=== PATIENT | female | born 1985 | race Caucasian/White ===

== ENCOUNTER 2017-01-01 12:37 | Emergency (ER) | payer OTHER ==
[2017-01-01 13:12] VITALS: BP 108/74
--- NOTE | 2017-01-01 14:11 | UC ---
Ewa Mckoy Alok, scribed for Angus Wolff MD on 01/01/17 at 1306 . FLU HPI - HPI Summary HPI Summary: 31F presents to the [facility] with SALCIDO, clear rhinorrhea, difficulty sleeping, fatigue , and generalized myalgia since 4 days ago. Pt states her SALCIDO and rhinorrhea have been improving since then, though her myalgia seems to be getting worse. Pt also notes sore throat a few days ago. Pt also notes a red bump on her left chest one month ago smaller than a dime. Pt denies fever, N/V/D, or rashes. Pt denies SOB. Pt denies tobacco/ETOH. Pt is allergic to Sulfa-antibiotics and Peptobismo. She denies seeing any ticks on her body, and denies removing any ticks. 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 She is requesting lyme testing. - History of Current Complaint Chief Complaint: UCGeneralIllness Stated Complaint: BODY ACHES, LOW ENERGY Time Seen by Provider: 01/01/17 12:57 Hx Obtained From: Patient Hx Last Menstrual Period: Mirena IUD ?: No Onset/Duration: Gradual Onset, Lasting Days, Still Present Severity Currently: Moderate Severity Initially: Moderate Pain Intensity: 1 Pain Scale Used: 0-10 Numeric Associated Signs & Symptoms: Positive: Myalgia, Sore Throat, Nasal Congestion, Headache. Negative: Fever, Vomiting, Diarrhea - Allergy/Home Medications Allergies/Adverse Reactions: Allergies Allergy/AdvReac Type Severity Reaction Status Date / Time Bismuth Subsalicylate Allergy Unknown Verified 01/01/17 12:49 Reaction Details Sulfa Antibiotics Allergy Pruritis Verified 01/01/17 12:49 Home Medications: Home Medications Acetaminophen [Acetaminophen Extra Stren] 1,000 mg PO Q6H PRN 01/01/17 [History Confirmed 01/01/17] Levonorgestrel (Iud) [Mirena IUD] 20 mcg IU ONCE 01/01/17 [History Confirmed ] Vitamin TAB* 1 tab PO DAILY 01/01/17 [History Confirmed 01/01/17] PMH/Surg Hx/FS Hx/Imm Hx Endocrine History Of: Denies: Diabetes Cardiovascular History Of: Denies: Hypertension - Surgical History Surgical History: Yes Surgery Procedure, Year, and Place: [place] Teeth Extractions - Family History Known Family History: Positive: Other - Yes - glaucoma - Social History Occupation: Employed Full-time Alcohol Use: Rare Substance Use Type: Excessive Caffeine Smoking Status (MU): Never Smoked Tobacco - Immunization History Most Recent Influenza Vaccination: 04/06/16 Most Recent Tetanus Shot: 04/06/16 Most Recent Pneumonia Vaccination: n/a Review of Systems Constitutional: Fatigue ENT: Sore Throat, Nasal Discharge Respiratory: Negative Gastrointestinal: Negative Musculoskeletal: Myalgia Neurological: Headache All Other Systems Reviewed And Are Negative: Yes Physical Exam Triage Information Reviewed: Yes Appearance: Well-Appearing, No Pain Distress, Well-Nourished Vital Signs: Initial Vital Signs Temp 98.4 F 01/01/17 12:47 Pulse 72 01/01/17 12:47 Resp 16 01/01/17 12:47 BP 108/74 01/01/17 12:47 Pulse Ox 99 01/01/17 12:47 Flu Course/Dx - Course Course Of Treatment: 31 yr old with clear runny nose, sore throat and cough with myalgias this week, getting better. Influenza negative. She has appointment January [address] Kartik Shen office. Lyme test sent per her request. Await results and she will follow up with Dr Shen office. - Differential Dx/Diagnosis Provider Diagnoses: upper respiratory infection Discharge - Discharge Plan Condition: Good Disposition: HOME Patient Education Materials: Upper Respiratory Infection (ED), Lyme Disease (ED ) Referrals: No Primary Care Phys,NOPCP [Primary Care Provider] - Cornelio Kinney MD [Medical Doctor] - 01/20/17 The documentation as recorded by the Ewa ansari Alok accurately reflects the service I personally performed and the decisions made by me, Angus Wolff MD.
== END 2017-01-01 13:49 | disposition home or self-care (01) ==
LOC: UCEAST 12:37
DX: J06.9 Acute upper respiratory infection, unspecified (principal); Z88.2 Allergy status to sulfonamides
CPT/HCPCS: 86618; 87502; 99201; G0463

== ENCOUNTER 2017-12-22 19:16 | Emergency (ER) | payer OTHER ==
[2017-12-22 19:30] VITALS: BP 123/71
--- NOTE | 2017-12-22 20:36 | RAD ---
INDICATION: Short of breath COMPARISON: None TECHNIQUE: PA and lateral dual-energy views were obtained. FINDINGS: Bones/Soft Tissues: There are no acute bony findings. There is a mild pectus excavatum deformity Cardiomediastinal: The cardiomediastinal silhouette is normal. Lungs: There are no infiltrates. Pleura: There are no pleural effusions. Other: None IMPRESSION: NO ACTIVE DISEASE.
[2017-12-22] MEDS ORDERED: Albuterol HFA INHALER* 8 gm MDI INH ONE (20:47)
--- NOTE | 2017-12-22 21:25 | UC ---
Shortness of Breath HPI - HPI Summary HPI Summary: Patient is a 32-year-old female presenting to the with chief complaint of not being able to take a full deep breath of air. She also endorses some lightheadedness when she is attempting at this. She states today while walking across her living room floor she became short of breath and dizzy so came to the . History of asthma many years ago, but has not needed an inhaler. Denies any chest pain. Denies any chest pain with inspiration. Vital signs are stable on arrival. She denies any fevers, sweats, chills. Denies any recent injury, trauma or URI. She has never had these symptoms before. Symptoms began approximately 3-4 days ago. Not worse or better with positioning or rest. - History of Current Complaint Chief Complaint: UCRespiratory Stated Complaint: DIFFICULTY BREATHING,LIGHT-HEADED Time Seen by Provider: 12/22/17 19:33 Hx Obtained From: Patient Hx Last Menstrual Period: unknown ?: No Onset/Duration: Sudden Onset Timing: Constant Current Severity: Mild Dyspnea At: Rest - Risk Factors Pulmonary Embolism: Negative Cardiac: Negative Pseudomonas: Negative Tuberculosis: Negative - Allergy/Home Medications Allergies/Adverse Reactions: Allergies Allergy/AdvReac Type Severity Reaction Status Date / Time bismuth subsalicylate Allergy red spots Verified 12/22/17 19:33 [From Pepto-Bismol] Sulfa (Sulfonamide Allergy Rash Verified 12/22/17 19:33 Antibiotics) Home Medications: Home Medications Multivit,Calc,Mins/Folic Acid [One-A-Day Proactive 65 Plus Tb] 1 tab PO DAILY [History Confirmed 12/22/17] PMH/Surg Hx/FS Hx/Imm Hx Previously Healthy: Yes - Surgical History Surgical History: Yes Surgery Procedure, Year, and Place: [place] Teeth Extractions - Family History Known Family History: Positive: Other - Yes - glaucoma - Social History Occupation: Employed Full-time Lives: With Family Alcohol Use: Rare Substance Use Type: Excessive Caffeine Smoking Status (MU): Never Smoked Tobacco - Immunization History Most Recent Influenza Vaccination: 04/06/16 Most Recent Tetanus Shot: 04/06/16 Most Recent Pneumonia Vaccination: n/a Review of Systems Constitutional: Fever Skin: Negative ENT: Negative Respiratory: Shortness Of Breath Gastrointestinal: Negative Motor: Negative Neurovascular: Negative Musculoskeletal: Negative Neurological: Other - light headedness Psychological: Negative Is Patient Immunocompromised?: No All Other Systems Reviewed And Are Negative: Yes Physical Exam Triage Information Reviewed: Yes Appearance: Well-Appearing, Well-Nourished Vital Signs: Initial Vital Signs Temp 97.8 F 12/22/17 19:24 Pulse 85 12/22/17 19:24 Resp 16 12/22/17 19:24 BP 123/71 12/22/17 19:24 Pulse Ox 98 12/22/17 19:24 Vital Signs Reviewed: Yes Eye Exam: Normal Neck exam: Normal Neck: Positive: Supple Respiratory: Positive: Chest non-tender Cardiovascular Exam: Normal Musculoskeletal Exam: Normal Neurological: Positive: Alert Psychological Exam: Normal Psychological: Positive: Normal Response To Family Skin Exam: Normal Shortness of Breath Dx - Course Course Of Treatment: During the course of treatment, the patient is evaluated for shortness of breath and dizziness. Immediately on arrival, EKG is performed which shows normal sinus rhythm. Vital signs are stable and she is not tachycardic. Chest x-ray obtained which shows no acute findings. There is no pain on palpation of the chest. No worsening pain with inspiration. No recent travel. No recent URI. I've advised she at this time he is an albuterol inhaler and ibuprofen for any inflammatory process. She is okay with this plan and will follow-up with her PCP for any worsening or changing symptoms. - Differential Dx/Diagnosis Provider Diagnoses: Shortness of breath Discharge - Sign-Out/Discharge Documenting (check all that apply): Discharge/Admit/Transfer - Discharge Plan Condition: Stable Disposition: HOME Patient Education Materials: Dyspnea (ED) Referrals: Cornelio Kinney MD [Primary Care Provider] - Additional Instructions: Ibuprofen 600mg three times daily Albuterol inhaler for any feelings of shortness of breath For any worsening or changing symptoms, return to the - Billing Disposition and Condition Condition: STABLE Disposition: HOME
== END 2017-12-22 20:50 | disposition home or self-care (01) ==
LOC: UCEAST 19:16
DX: R06.02 Shortness of breath (principal); R42 Dizziness and giddiness; Z88.2 Allergy status to sulfonamides
CPT/HCPCS: 71046; 93005; 99212; A9270-GY; G0463

== ENCOUNTER 2018-11-28 08:25 | Emergency (ER) | payer OTHER ==
[2018-11-28 08:55] VITALS: BP 108/67
--- NOTE | 2018-11-28 09:25 | UC ---
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 Ear pain dull, achy, keeping her up at night. No drainage noted. no fever, chills, no sinus drainage, feeling ill/ cold symptoms. Occurred one other time. hearing intact. - History of Current Complaint Chief Complaint: UCEar Stated Complaint: EAR PAIN Time Seen by Provider: 11/28/18 09:00 Hx Obtained From: Patient Hx Last Menstrual Period: unknown ?: No Onset/Duration: Sudden Onset, Lasting Days - 2 days Severity Initially: Mild Severity Currently: Moderate Pain Intensity: 5 Pain Scale Used: 0-10 Numeric Alleviating Factors: Nothing Associated Signs/Symptoms: Positive: Swelling @ - ear canal L side. Negative: Discharge, Hearing Loss, Foreign Body Sensation, Trauma to Ear - Allergies/Home Medications Allergies/Adverse Reactions: Allergies Allergy/AdvReac Type Severity Reaction Status Date / Time bismuth subsalicylate Allergy red spots Verified 11/28/18 08:56 [From Pepto-Bismol] Sulfa (Sulfonamide Allergy Rash Verified 11/28/18 08:56 Antibiotics) PMH/Surg Hx/FS Hx/Imm Hx Previously Healthy: Yes - Surgical History Surgical History: Yes Surgery Procedure, Year, and Place: [place] Teeth Extractions - Family History Known Family History: Positive: Other - Yes - glaucoma - Social History Alcohol Use: Rare Substance Use Type: Excessive Caffeine Smoking Status (MU): Never Smoked Tobacco - Immunization History Most Recent Influenza Vaccination: 04/06/16 Most Recent Tetanus Shot: 04/06/16 Most Recent Pneumonia Vaccination: n/a Review of Systems All Other Systems Reviewed And Are Negative: Yes ENT: Positive: Ear Ache Psychological: Positive: Negative Is Patient Immunocompromised?: No Physical Exam Triage Information Reviewed: Yes Appearance: Well-Appearing, No Pain Distress, Well-Nourished Vital Signs: Initial Vital Signs Temp 97.8 F 11/28/18 08:50 Pulse 71 11/28/18 08:50 Resp 18 11/28/18 08:50 BP 108/67 11/28/18 08:50 Pulse Ox 99 11/28/18 08:50 Vital Signs Reviewed: Yes Eyes: Positive: Conjunctiva Clear ENT: Positive: Other - L ear canal minimal erythema until near TM, then red around TM with purulent material seen frm 12-3 position, + erythema from 12-6 position, TM intact, no bulging, no fluid posterior to TM. + tenderness to exam externally. + mild periauricular tenderness L side. No symptoms. Negative: Nasal congestion, Nasal drainage, TM bulging, TM dull, TM red Neck: Positive: Supple, Nontender Musculoskeletal Exam: Normal Neurological Exam: Normal Psychological Exam: Normal Skin Exam: Normal Ear Complaint Course/Dx - Course Course Of Treatment: h/o otitis extena, treated with topical drops, return if there is no improvement within 2-3 days - Differential Dx/Diagnosis Differential Diagnosis/HQI/PQRI: Cerumen Impaction, URI Provider Diagnosis: Otitis externa Discharge - Sign-Out/Discharge Documenting (check all that apply): Patient Departure All imaging exams completed and their final reports reviewed: No Studies - Discharge Plan Condition: Good Disposition: HOME Prescriptions: Neomyc/Polym/HC 1% OTIC SUSP* [Cortisporin Otic Susp 1%*] 4 drop RIGHT EAR QID # 1 btl Patient Education Materials: Otitis Externa (ED) Referrals: Cornelio Kinney MD [Primary Care Provider] - Additional Instructions: - Four drops into right ear canal four times daily x 5-7 days, may stop when symptoms completed resolved after 5 days - Follow up within 2-3 days if no improvement of symptoms. - Follow up with dermatology due to history of eczema in ear - Billing Disposition and Condition Condition: GOOD Disposition: Home
== END 2018-11-28 09:35 | disposition home or self-care (01) ==
LOC: UCEAST 08:25
DX: H60.92 Unspecified otitis externa, left ear (principal); Z88.2 Allergy status to sulfonamides; Z88.8 Allergy status to other drugs, medicaments and biological substances
CPT/HCPCS: 99212; G0463

== ENCOUNTER 2018-11-28 21:09 | Emergency (ER) | payer OTHER ==
[2018-11-28 21:38] VITALS: BP 114/76
--- NOTE | 2018-11-28 21:39 | UC ---
Ear Complaint HPI - HPI Summary HPI Summary: 33 yo female presents with right ear pain. She tells me that she was seen here this morning for right ear pain and dx'd with otitis externa and placed on ear drops. She has used two doses of the ear drops. Tonight she was getting her toddler son in the bathtub when they collided head and son impacted pt's right ear causing her significant pain. She is concerned her eardrum may be ruptured and is wondering if she should continue the ear drops. - History of Current Complaint Chief Complaint: UCEar Stated Complaint: EAR ACHE Time Seen by Provider: 11/28/18 21:39 Hx Obtained From: Patient Hx Last Menstrual Period: iud Onset/Duration: Sudden Onset Severity Initially: Moderate Severity Currently: Moderate Pain Intensity: 6 Pain Scale Used: 0-10 Numeric - Allergies/Home Medications Allergies/Adverse Reactions: Allergies Allergy/AdvReac Type Severity Reaction Status Date / Time bismuth subsalicylate Allergy red spots Verified 11/28/18 21:38 [From Pepto-Bismol] Sulfa (Sulfonamide Allergy Rash Verified 11/28/18 21:38 Antibiotics) PMH/Surg Hx/FS Hx/Imm Hx - Additional Past Medical History Additional PMH: None - Surgical History Surgical History: Yes Surgery Procedure, Year, and Place: [place] Teeth Extractions - Family History Known Family History: Positive: Other - Yes - glaucoma - Social History Lives: With Family Alcohol Use: Rare Substance Use Type: Excessive Caffeine Smoking Status (MU): Never Smoked Tobacco - Immunization History Most Recent Influenza Vaccination: 04/06/16 Most Recent Tetanus Shot: 04/06/16 Most Recent Pneumonia Vaccination: n/a Review of Systems All Other Systems Reviewed And Are Negative: Yes Constitutional: Positive: Negative Skin: Positive: Negative ENT: Positive: Ear Ache Respiratory: Positive: Negative Cardiovascular: Positive: Negative Neurological: Positive: Negative Psychological: Positive: Negative Physical Exam - Summary Physical Exam Summary: GENERAL: NAD. WDWN. No pain distress. SKIN: No rashes, sores, lesions, or open wounds. HEENT: Head: AT/NC Eyes: EOM intact. Conjunctiva clear without inflammation or discharge. Ears: Hearing grossly normal. TMs intact, no bulging, erythema, or edema. RIGHT ear canal with mild edema and scant white discharge. TTP with manipulation. Nose: Nasal mucosa pink and moist. NTTP maxillary and frontal sinus. Throat: Posterior oropharynx without exudates, erythema, or tonsillar enlargement. Uvula midline. NECK: Supple. Nontender. No lymphadenopathy. CHEST: CTAB. No r/r/w. No accessory muscle use. Breathing comfortably and in no distress. CV: RRR. Without m/r/g. Pulses intact. Cap refill <2seconds NEURO: Alert. PSYCH: Age appropriate behavior. Triage Information Reviewed: Yes Vital Signs: Initial Vital Signs Temp 97.6 F 11/28/18 21:34 Pulse 70 11/28/18 21:34 Resp 16 11/28/18 21:34 BP 114/76 11/28/18 21:34 Pulse Ox 100 11/28/18 21:34 Vital Signs Reviewed: Yes Ear Complaint Course/Dx - Course Course Of Treatment: TM appears intact. Advised pt to continue using anbx ear drop for otitis externa. - Differential Dx/Diagnosis Provider Diagnosis: Otitis externa Discharge - Sign-Out/Discharge Documenting (check all that apply): Patient Departure All imaging exams completed and their final reports reviewed: No Studies - Discharge Plan Condition: Stable Disposition: HOME Referrals: Cornelio Kinney MD [Primary Care Provider] - Additional Instructions: If you develop a fever, shortness of breath, chest pain, new or worsening symptoms - please call your PCP or go to the ED. Your eardrum appears intact on exam today. Continue using your antibiotic ear drops - Billing Disposition and Condition Condition: STABLE Disposition: Home
== END 2018-11-28 21:50 | disposition home or self-care (01) ==
LOC: UCEAST 21:09
DX: H60.91 Unspecified otitis externa, right ear (principal); Z88.2 Allergy status to sulfonamides; Z88.8 Allergy status to other drugs, medicaments and biological substances
CPT/HCPCS: 99211; G0463

== ENCOUNTER 2019-10-07 13:26 | Emergency (ER) | payer OTHER ==
--- OUTSIDE RECORDS SUMMARY | 2019-10-07 13:32 | XMS REPORT | Continuity of Care Document ---
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 Medicine Problems Active Problems Provider Date Contraception care Cornelio Kinney M.D.,[facility] Onset: 05/13/2018 Social History Type Date Description Comments Sex Unknown Tobacco Use Start: Unknown Never Smoked Cigarettes Smoking Status Reviewed: 09/27/19 Never Smoked Cigarettes ETOH Use 05/13/2018 Denies alcohol use Tobacco Use Start: Unknown Patient has never smoked Recreational Drug Use Denies Drug Use Exercise Type/Frequency Does not exercise Allergies, Adverse Reactions, Alerts Active Allergies Reaction Severity Comments Date Sulfa Antibiotics 05/14/2016 Pepto-Bismol spoke out in "red spots" 05/14/2016 Medications Active Medications SIG Qnty Indications Ordering Provider Date Doxycycline take 1 tab by 28caps ALFIE Wise 09/20/2019 Monohydrate mouth bid for 2 100mg weeks Capsules Vitamin D3 Ultra 1 by mouth 90caps ALFIE Wise 09/20/2019 Strength every day for 3 125mcg (5000 Ut) month Capsules Mirena (52 MG) Unknown 20mcg/24HR IUD Immunizations CPT Code Status Date Vaccine Lot # [id number] Given 02/17/2018 Typhoid Vaccine [id number] Vital Signs Date Vital Result Comment 09/27/2019 8:16am Height 67 inches 5'7" Weight 144.25 lb Heart Rate 75 /min BP Systolic 101 mmHg BP Diastolic 61 mmHg Body Temperature 96.7 F O2 % BldC Oximetry 97 % BMI (Body Mass Index) 22.6 kg/m2 09/20/2019 10:58am Height 67 inches 5'7" Weight 146.00 lb Heart Rate 90 /min BP Systolic 130 mmHg BP Diastolic 76 mmHg Body Temperature 96.9 F O2 % BldC Oximetry 99 % BMI (Body Mass Index) 22.9 kg/m2 Results Test Acquired Date Facility Test Result H/L Range Note CBC Auto 09/20/2019 [facility] White Blood 11.6 10^3/uL High 3.5-10.[address] [place] [address] [phone] Red Blood Count 4.33 10^6/uL Normal 3.70-4.87 Hemoglobin 13.8 g/dL Normal 12.0-16.0 Hematocrit 40 % Normal 35-47 Mean Corpuscular Volume 93 fL Normal 80-97 Mean Corpuscular Hemoglobin 32 pg High 27-31 Mean Corpuscular HGB Conc 34 g/dL Normal 31-36 Red Cell Distribution Width 12 % Normal 10-15 Platelet Count 282 10^3/uL Normal 150-450 Mean Platelet Volume 7.9 fL Normal 7.4-10.4 Abs Neutrophils 9.0 10^3/uL High 1.5-7.7 Abs Lymphocytes 1.7 10^3/uL Normal 1.0-4.8 Abs Monocytes 0.5 10^3/uL Normal 0-0.8 Abs Eosinophils 0.4 10^3/uL Normal 0-0.6 Abs Basophils 0.1 10^3/uL Normal 0-0.2 Abs Nucleated RBC 0.0 10^3/uL Granulocyte % 77.3 % Lymphocyte % 14.4 % Monocyte % 4.0 % Eosinophil % 3.8 % Basophil % 0.5 % Nucleated Red Blood Cells % 0.1 Comp Metabolic 09/20/2019 [facility] Sodium 138 mmol/L Normal 135-[address] [place] [address] [phone] Potassium 4.0 mmol/L Normal 3.5-5.0 Chloride 102 mmol/L Normal 101-111 Co2 Carbon Dioxide 28 mmol/L Normal 22-32 Anion Gap 8 mmol/L Normal 2-11 Glucose 90 mg/dL Normal 70-100 Blood Urea Nitrogen 13 mg/dL Normal 6-24 Creatinine 0.78 mg/dL Normal 0.51-0.95 BUN/Creatinine Ratio 16.7 Normal 8-20 Calcium 9.3 mg/dL Normal 8.6-10.3 Total Protein 7.3 g/dL Normal 6.4-8.9 Albumin 5.0 g/dL Normal 3.2-5.2 Globulin 2.3 g/dL Normal 2-4 Albumin/Globulin Ratio 2.2 Normal 1-3 Total Bilirubin 1.00 mg/dL Normal 0.2-1.0 Alkaline Phosphatase 53 U/L Normal 34-104 Alt 7 U/L Normal 7-52 Ast 35 U/L Normal 13-39 Egfr Non- 83.6 >60 Egfr 101.1 >60 1 Laboratory 09/20/2019 [facility] TSH (Thyroid 1.61 Normal 0.34 -5.60 test finding [address] Stim Horm) mcIU/[place] [address] [phone] Vitamin B12 09/20/2019 [facility] Vitamin B12 535 pg/mL Normal 180-914 [address] [place] [address] [phone] Folic Acid (Folate) 19.93 ng/mL >3.99 Laboratory test 09/20/2019 [facility] Vitamin D 16.5 ng/mL Low 20-50 [address] Total 25(Oh) [place] [address] [phone] Lyme Screen W/ Reflex To WB Negative Negative Tick-Borne Panel 09/20/2019 [facility] Babesia Negative Negative PCR Blood [address] [address] [phone] Babesia ducani Negative Negative Babesia divergens/Mo-1 Negative Negative 4 Anaplasma phagocytophilum Negative Negative Ehrlichia chaffeensis Negative Negative Ehrlichia ewingii/canis Negative Negative Ehrlichia muris eauclairensis Negative Negative 5 B. miyamotoi PCR, B Negative Negative 6 Laboratory test 09/20/2019 [facility] Nuclear AB <1:80 (Negative ) [address] (Lizabeth) [place] [address] Igg [phone] Rheumatoid Factor < 10 IU/mL Normal <15 Cyclic Citrullinated Pep Igg <15.6 U 8 C Reactive Protein 3.81 mg/L Normal <8.01 Erythrocyte Sed Rate 12 mm/Hr Normal 0-19 1 Because ethnic data is not always readily available, this report includes an eGFR for both -Americans and non- Americans. The National Kidney Disease Education Program (NKDEP) does not endorse the use of the MDRD equation for patients that are not between the ages of 18 and 70, are , have extremes of body size, muscle mass, or nutritional status, or are non- or non-. According to the National Kidney Foundation, irrespective of diagnosis, the stage of the disease is based on the level of kidney function: Stage Description GFR(mL/min/1.73 m(2)) 1 Kidney damage with normal or decreased GFR 90 2 Kidney damage with mild decrease in GFR 60-89 3 Moderate decrease in GFR 30-59 4 Severe decrease in GFR 15-29 5 Kidney failure <15 (or dialysis) 2 Normal Range 180 to 914 Indeterminate Range 145 to 180 Deficient Range <145 3 Total 25-Hydroxyvitamin D2 and D3 (25-OH-VitD) <10 ng/mL (severe deficiency) 10-19 ng/mL (mild to moderate deficiency) 20-50 ng/mL (optimum levels) 51-80 ng/mL (increased risk of hypercalciuria) >80 ng/mL (toxicity possible) 4 ADDITIONAL INFORMATION This test was developed and its performance characteristics determined by [facility] in a manner consistent with CLIA requirements. This test has not been cleared or approved by the U.S. Food and Drug Administration. 5 ADDITIONAL INFORMATION This test was developed and its performance characteristics determined by [facility] in a manner consistent with CLIA requirements. This test has not been cleared or approved by the U.S. Food and Drug Administration. 6 ADDITIONAL INFORMATION This test was developed and its performance characteristics determined by [facility] in a manner consistent with CLIA requirements. This test has not been cleared or approved by the U.S. Food and Drug Administration. Test Performed by: [facility] - [place] [id number] Outlet Manager: Antonio Mcnally M.D. Ph.D.; CLIA# [id number] 7 <1:80 (Negative) REFERENCE VALUE <1:80 (Negative) Test Performed by: [facility] [place] [address] Outlet Manager: Antonio Mcnally M.D. Ph.D.; CLIA# [id number] REFERENCE VALUE <20.0 (Negative) Test Performed by: [facility] [place] [address] Outlet Manager: Antonio Mcnally M.D. Ph.D.; CLIA# [id number] Procedures Description No Information Available Medical Devices Description No Information Available Encounters Type Date Location Provider Dx Diagnosis Office Visit 09/20/2019 Office Agent Internal Shani Kaufman, ALFIE R53.83 Other fatigue 11:00a Medicine - Ccmob R51 Headache M25.561 Pain in right knee M25.562 Pain in left knee Assessments Date Code Description Provider 09/27/2019 R53.83 Other fatigue ALFIE Wise 09/20/2019 R53.83 Other fatigue ALFIE Wise 09/20/2019 R51 Headache ALFIE Wise 09/20/2019 M25.561 Pain in right knee ALFIE Wise 09/20/2019 M25.562 Pain in left knee ALFIE Wise Plan of Treatment 09/27/2019 - SANDEEP WisePR53.83 Other fatigueComments:Please let me know if you would like to take the doxycycline for 3 weeks instead of 2 week.Call meif your symptoms returnFollow up:as needed Functional Status Description No Information Available Mental Status Description No Information Available Referrals Description No Information Available
--- OUTSIDE RECORDS SUMMARY | 2019-10-07 13:32 | XMS REPORT | Continuity of Care Document ---
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 Problems Active Problems Provider Date Contraception care [facility] Onset: 05/13/2018 Social History Type Date Description Comments Sex Unknown Tobacco Use Start: Unknown Never Smoked Cigarettes Smoking Status Reviewed: 09/20/19 Never Smoked Cigarettes ETOH Use 05/13/2018 Denies alcohol use Tobacco Use Start: Unknown Patient has never smoked Recreational Drug Use Denies Drug Use Exercise Type/Frequency None at present Plans to restart 7 min exercise Allergies, Adverse Reactions, Alerts Active Allergies Reaction Severity Comments Date Sulfa Antibiotics 05/14/2016 Pepto-Bismol spoke out in "red spots" 05/14/2016 Medications Active Medications SIG Qnty Indications Ordering Provider Date Mirena (52 MG) Unknown 20mcg/24HR IUD Immunizations CPT Code Status Date Vaccine Lot # [id number] Given 02/17/2018 Typhoid Vaccine [id number] Vital Signs Date Vital Result Comment 09/20/2019 10:58am Height 67 inches 5'7" Weight 146.00 lb Heart Rate 90 /min BP Systolic 130 mmHg BP Diastolic 76 mmHg Body Temperature 96.9 F O2 % BldC Oximetry 99 % BMI (Body Mass Index) 22.9 kg/m2 07/27/2018 12:10pm Height 67 inches 5'7" Weight 146.00 lb Heart Rate 83 /min BP Systolic Sitting 110 mmHg BP Diastolic Sitting 72 mmHg Body Temperature 97.9 F O2 % BldC Oximetry 96 % BMI (Body Mass Index) 22.9 kg/m2 Results Description No Information Available Procedures Description No Information Available Medical Devices Description No Information Available Encounters Description No Information Available Assessments Date Code Description Provider 09/20/2019 R53.83 Other fatigue ALFIE Wise 09/20/2019 R51 Headache ALFIE Wise 09/20/2019 M25.569 Pain in unspecified knee ALFIE Wise Plan of Treatment Future Appointment(s):09/27/2019 8:20 am - ALFIE Wise at [facility] Internal Medicine - [facility]09/20/2019 - SANDEEP WisePR53.83 Other fatigueComments:As we discussed that if there is no other plausible reason for the symptoms will stat ou on the doxycylineFollow up:1 [id number] Pain in unspecified knee Functional Status Description No Information Available Mental Status Description No Information Available Referrals Description No Information Available
[2019-10-07 13:49] VITALS: BP 117/81
--- NOTE | 2019-10-07 14:06 | UC ---
Dizzy HPI HPI Summary: patient states she is feeling "wrong". has had vague symps of headache and fatigue for 3-4 weeks, sawe PCP 3 weeks ago and had a battery of lab work, everything was normal except an elevated WBC, she was treated with doxycycline and started to feel better for 1st week, then family had flu symps (none were tested) and she though maybe she had flu. dong ok until last pm she was feeling cold and in bed had chills and dizziness when moving, today she is having intermittent dizziness, especially when walking. dizziness resolves spontaneously within secs, occasionally leaves mild headache for few minutes. 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 Negative: Nausea, Vomiting, Tinnitus, Chest Pain, Palpitations, Visual Changes - Allergies/Home Medications Allergies/Adverse Reactions: Allergies Allergy/AdvReac Type Severity Reaction Status Date / Time bismuth subsalicylate Allergy red spots Verified 10/07/19 13:46 [From Pepto-Bismol] Sulfa (Sulfonamide Allergy Rash Verified 10/07/19 13:46 Antibiotics) Home Medications: Home Medications Levonorgestrel (Iud) [Mirena IUD] 20 mcg IU ONCE 01/01/17 [History Confirmed ] Cholecalciferol (Vitamin D3) [Vitamin D3] 1 tab PO DAILY 10/07/19 [History Confirmed 10/07/19] Doxycycline Monohydrate 1 tab PO BID 10/07/19 [History Confirmed 10/07/19] Meclizine TAB* [Antivert 12.5 TAB*] 12.5 mg PO TID PRN #30 tab 10/07/19 [Rx] PMH/Surg Hx/FS Hx/Imm Hx Previously Healthy: Yes - Surgical History Surgical History: Yes Surgery Procedure, Year, and Place: [place] Teeth Extractions - Family History Known Family History: Positive: None, Other - Yes - glaucoma - Social History Occupation: Unemployed Lives: With Family Alcohol Use: Rare Substance Use Type: Excessive Caffeine Smoking Status (MU): Never Smoked Tobacco - Immunization History Most Recent Influenza Vaccination: 04/06/16 Most Recent Tetanus Shot: 04/06/16 Most Recent Pneumonia Vaccination: n/a Review of Systems All Other Systems Reviewed And Are Negative: Yes Constitutional: Positive: Chills, Fatigue. Negative: Fever Skin: Positive: Negative. Negative: Rash Eyes: Positive: Negative ENT: Positive: Negative Respiratory: Positive: Negative. Negative: Shortness Of Breath, Cough Cardiovascular: Positive: Negative. Negative: Palpitations, Chest Pain Gastrointestinal: Positive: Negative Neurological/Mental Status: Positive: Headache, Other - dizziness Psychological: Positive: Negative Is Patient Immunocompromised?: No Physical Exam Triage Information Reviewed: Yes Appearance: Well-Appearing, No Pain Distress, Well-Nourished Vital Signs: Initial Vital Signs Temp 99.3 F 10/07/19 13:33 Pulse 83 10/07/19 13:33 Resp 18 10/07/19 13:33 BP 117/81 10/07/19 13:33 Pulse Ox 99 10/07/19 13:33 Vital Signs Reviewed: Yes Eye Exam: Normal Eyes: Positive: Conjunctiva Clear ENT Exam: Normal ENT: Positive: Pharynx normal, TMs normal. Negative: Nasal congestion Neck exam: Normal Neck: Positive: Supple, Nontender, No Lymphadenopathy, Other: - denies pain whith chin to chest. Negative: Nuchal Rigidity Respiratory Exam: Normal Respiratory: Positive: Lungs clear Cardiovascular Exam: Normal Cardiovascular: Positive: RRR, No Murmur Neurological Exam: Normal Neurological: Positive: Alert, Other: - able to precipitate dizziness with rapid head movement on exam Psychological Exam: Normal Skin Exam: Normal Skin: Negative: Rashes Re-Evaluation - Re-Evaluation First Eval Re-Evaluation Time: 14:50 Change: Improved - patient states dizziness is better and her head is not as foggy after taking meclizine Dizzy Course/Dx - Differential Dx/Diagnosis Differential Diagnosis/HQI/PQRI: Labyrinthitis, Other - influenza, viral illness , meningitis, cardiac arrythmia Provider Diagnosis: Acute labyrinthitis Discharge ED - Sign-Out/Discharge Documenting (check all that apply): Patient Departure All imaging exams completed and their final reports reviewed: No Studies - Discharge Plan Condition: Good Disposition: HOME Prescriptions: Meclizine TAB* [Antivert 12.5 TAB*] 12.5 mg PO TID PRN #30 tab PRN Reason: Dizziness Patient Education Materials: Labyrinthitis (ED) Referrals: Shani Kaufman NP [Primary Care Provider] - 2 Weeks (if no better or sooner if worse) Additional Instructions: Use meclizine as directed. It may make you feel drowsy report to ER if symptoms worsen or new symptoms evolve - Billing Disposition and Condition Condition: GOOD Disposition: Home
[2019-10-07 14:17] LABS: Influenza A Molecular Negative (Negative); Influenza B Molecular Negative (Negative)
[2019-10-07] MEDS ORDERED: Meclizine TAB* 12.5 MG PO ONE (14:34)
== END 2019-10-07 15:10 | disposition home or self-care (01) ==
LOC: UCEAST 13:26
DX: H83.09 Labyrinthitis, unspecified ear (principal); Z88.2 Allergy status to sulfonamides; Z88.8 Allergy status to other drugs, medicaments and biological substances
CPT/HCPCS: 99212; A9270-GY; G0463